=== PATIENT | male | born 1945 | race Caucasian/White ===

== ENCOUNTER 2025-04-20 12:56 | Outpatient (RCR) | payer OTHER, SELFPAY ==
--- NOTE | 2025-04-20 15:48 | CTCCONSULT_ITS ---
[facility] [address] [place], [place] [address] Consultation Note Date: 04/20/2025 MR#: [id number] Name: JOSE JACOBSON : 1945 Dx: C43.61 Malignant melanoma right upper limb Referring physician. Alyse Philip [facility] dermatology Reason for consultation. Patient with malignant melanoma at least pT3b status post shave biopsy right proximal dorsal forearm. History of Present Illness: Patient is a pleasant 80-year-old gentleman well- known to us with prior treatment for prostate cancer treated successfully radiation in 2009. Has been followed at [facility] dermatology for various skin lesions. Area in the right proximal dorsal forearm biopsy by shave method rev ealed malignant melanoma at least 2.2 mm in depth . Ulceration present vascular invasion absent. Stage ll B at least T3bNX. Patient now referred for oncological consultation. Past Medical History: History of high blood pressure heart murmur prior radiation therapy for prostate cancer. Prior colon cancer surgery treated in [facility] with no adjuvant therapy Meds. 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 Assessment:1. Patient with stage IIb pT3b NX malignant melanoma status post shave biopsy right proximal dorsal forearm. 2. Recommend wide excision with sentinel node biopsy as per NCCN guidelines. 3. [facility] reportedly will arrange for this. 4. Has no symptoms of PATTERN ATTENDANT involvement or distant mets. 5. Will get standard chest abdomen pelvis as recommended by up-to-date for stage IIB patients. 6. Follow-up in 2 months. 7. Thank you very much for allowing me to evaluate this very nice patient. Cc: LAURE Stokes Electronically signed by: Kodi Weeks MD, DABR 04/20/2025 3:46 PM
== END 2025-05-05 23:59 | disposition home or self-care (01) ==
LOC: SCTC 12:56
PROVIDERS: PCP Physician Assistant; Referring Provider Physician Assistant; Visit Provider Radiology Therapeutic Radiology
DX: C43.61 Malignant melanoma of right upper limb, including shoulder (principal)
CPT/HCPCS: 99213; G0463